=== PATIENT | male | born 1965 | race Caucasian/White ===

== ENCOUNTER 2017-12-01 11:24 | Day surgery (SDC) | payer MEDICAID ==
[~2017-12-01] VITALS: Ht 193 cm; Wt 111.0 kg
[~2017-12-01 11:24] MED LIST: HYDR25TA PO
[2017-12-01] MEDS ORDERED: LIDOCAINE/PF 2% 5 ML VIAL IM ONE (11:25)
[2017-12-01] MEDS ORDERED: MIDAZOLAM HCL 2 MG/2 ML VIAL IVP ONE (11:25)
[2017-12-01] MEDS ORDERED: PROPOFOL 1% 20 ML VIAL IVP ONE (11:25)
[2017-12-01] MEDS ORDERED: SODIUM CHLORIDE 0.9% 1,000 ML IV ONE ×2 (11:51→12:00)
== END 2017-12-01 16:50 | disposition home or self-care (01) ==
LOC: SURGERY 11:24
PROVIDERS: ATTEND Internal Medicine Gastroenterology
DX: D12.4 Benign neoplasm of descending colon (principal); K64.8 Other hemorrhoids; K21.0 Gastro-esophageal reflux disease with esophagitis; K22.70 Barrett's esophagus without dysplasia; K29.50 Unspecified chronic gastritis without bleeding; F19.90 Other psychoactive substance use, unspecified, uncomplicated; B18.2 Chronic viral hepatitis C; I10 Essential (primary) hypertension; Z88.1 Allergy status to other antibiotic agents; Z98.890 Other specified postprocedural states; Z79.899 Other long term (current) drug therapy; Z83.71 Family history of colonic polyps
CPT/HCPCS: 43239; 45380; 45385; 88305; 88312; C1769; J2250; J2704; J3490; J7030